=== PATIENT | female | born 1995 | race Hispanic/Latino ===

== ENCOUNTER 2022-06-13 01:05 | Emergency (ER) | payer BC ==
[2022-06-13 01:59] LABS: Urine Blood Trace-intact (Negative); Urine Glucose Negative (Negative); Urine Protein Negative (Negative); Urine Specific Gravity >=1.030 (1.005-1.030); Urine pH 6.5 (5.0-7.0)
[2022-06-13] MEDS ORDERED: FAMOTIDINE 20 MG/2 ML VIAL IV ONE (02:00)
[2022-06-13] MEDS ORDERED: NA CHLORIDE 0.9% 1,000 ML ONE (02:00)
[2022-06-13] MEDS ORDERED: ONDANSETRON 4 MG/2 ML VIAL ONE (02:00)
[2022-06-13] MEDS ORDERED: MORPHINE 4 MG/ML SYR ONE (02:00)
[2022-06-13 02:17] LABS: Absolute Lymphocytes (CBC) 2.2 K/uL (0.7-4.9); Hematocrit 36.5 % (36.0-45.0); Lymphocytes % 35.2 % (15.3-44.8); MCV 83.6 fL (80-100); MPV 6.7 fL (7.6-11.3); RBC Red Blood Cell Count 4.36 M/uL (3.86-4.86)
[2022-06-13 02:18] LABS: Urine Specific Gravity/Preg >1.030 (1.005-1.030)
[2022-06-13 02:36] LABS: Albumin 3.9 g/dL (3.4-5.0); Bilirubin Total 0.4 mg/dL (0.2-1.0); Potassium 3.8 mmol/L (3.5-5.1); Protein, Total 7.8 g/dL (6.4-8.2)
[2022-06-13] MEDS ORDERED: HYDROMORPHONE HCL 0.5 MG/0.5 ML INJ ONE (03:51)
--- NOTE | 2022-06-13 04:30 | EDPHYS ---
Physician Documentation [facility] Name: Rosina Chu Age: 27 yrs Sex: Female : 1995 Arrival Date: 06/13/2022 Time: 01:12 Bed 12 Private MD: ED Physician Wilmer Aceves HPI: 06/13 02:20 This 27 yrs old Female presents to ER via Ambulatory with complaints of abd rn pain. 02:20 The patient presents with abdominal pain in the right upper quadrant. Onset: The rn symptoms/episode began/occurred today. The symptoms radiate to back. Associated signs and symptoms: Pertinent positives: nausea and vomiting, Pertinent negatives: blood in stools, chest pain, fever, shortness of breath. The symptoms are described as sharp, stabbing. Modifying factors: The symptoms are alleviated by nothing, the symptoms are aggravated by food, touching the area. Severity of pain: At its worst the pain was moderate in the emergency department the pain is unchanged. The patient has experienced similar episodes in the past. The patient has been recently seen by a physician:. Pt reports RUQ abd pain that began yesterday, assoc with nausea/vomiting. Has known gallstones and scheduled for cholecystectomy on Jun 25. Has hydrocodone for pain and wasn't helping, so came in tonight. . 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 It has been more than one year since last vaccine. - Social history:: Smoking status: Patient denies any tobacco usage or history of. - Family history:: not pertinent. - Hospitalizations: : No recent hospitalization is reported. ROS: 02:20 Constitutional: Negative for fever, chills, and weight loss, Eyes: Negative for injury, rn pain, redness, and discharge, Neck: Negative for injury, pain, and swelling, Cardiovascular: Negative for chest pain, palpitations, and edema, Respiratory: Negative for shortness of breath, cough, wheezing, and pleuritic chest pain, Abdomen/GI: + RUQ abd pain and nausea/vomiting Back: Negative for injury and pain, MS/Extremity: Negative for injury and deformity, Skin: Negative for injury, rash, and discoloration, Neuro: Negative for headache, weakness, numbness, tingling, and seizure. Exam: 02:20 Constitutional: This is a well developed, well nourished patient who is awake, alert, rn appears slightly uncomfortable Head/Face: Normocephalic, atraumatic. Cardiovascular: Regular rate and rhythm. No pulse deficits. Respiratory: No increased work of breathing, no retractions or nasal flaring. Abdomen/GI: Soft, + RUQ tenderness, no rebound Skin: Warm, dry MS/ Extremity: Pulses equal, no cyanosis. Neuro: Awake and alert, GCS 15 Vital Signs: 01:44 BP 124 / 88; Pulse 81; Resp 18; Temp 98.1; Pulse Ox 100% ; Weight 86.18 kg; Height 5 tw5 ft. 8 in. (172.72 cm); Pain 9/10; 03:54 BP 130 / 82; Pulse 71; Resp 18; Pulse Ox 100% on R/A; Pain 9/10; tw5 04:25 Pain 5/10; tw5 04:40 BP 103 / 52; Pulse 65; Resp 18; Pulse Ox 100% ; Pain 5/10; tw5 01:44 Body Mass Index 28.89 (86.18 kg, 172.72 cm) tw5 MDM: 01:35 Patient medically screened. rn 04:28 Differential diagnosis: cholecystitis, Cholelithiasis, gastritis, gastroesophageal rn reflux disease, non-specific abd pain, pancreatitis, Peptic Ulcer Disease. Data reviewed: vital signs, nurses notes, lab test result(s), radiologic studies, CT scan, and as a result, I will discharge patient. Counseling: I had a detailed discussion with the patient and/or guardian regarding: the historical points, exam findings, and any diagnostic results supporting the discharge/admit diagnosis, lab results, radiology results, the need for outpatient follow up, to return to the emergency department if symptoms worsen or persist or if there are any questions or concerns that arise at home. Response to treatment: the patient's symptoms have markedly improved after treatment, and as a result, I will discharge patient. Special discussion: Based on the patient's Hx, exam, and Dx evaluation, there is no indication for emergent surgery or inpatient Tx. It is understood by the patient/guardian that if the Sx's persist or worsen they need to return immediately for re-evaluation. I discussed with the patient/guardian in detail that at this point there is no indication for admission to the hospital. It is understood, however, that if the symptoms persist or worsen the patient needs to return immediately for re-evaluation. Based on the history and exam findings, there is no indication for further emergent testing or inpatient evaluation. I discussed with the patient/guardian the need to see the general surgeon for further evaluation of the symptoms. ED course: Pt sleeping comfortably, pain free, will dc home with surgery f/u. TOld her to call Dr. De Dios, might move up surgery. Given return precautions. Has norco at home for pain. . 06/13 01:49 Order name: CBC with Diff; Complete Time: 02:53 rn 06/13 01:49 Order name: CMP; Complete Time: 02:53 rn 06/13 01:49 Order name: Lipase; Complete Time: 02:53 rn 06/13 01:49 Order name: CT Abd/Pelvis - IV Contrast Only rn 06/13 02:00 Order name: Urine Dipstick-Ancillary; Complete Time: 02:53 EDMS 06/13 02:01 Order name: Urine --Ancillary (enter results); Complete Time: 02:53 wm 06/13 01:49 Order name: IV Saline Lock; Complete Time: 02:09 rn 06/13 01:49 Order name: Labs collected and sent; Complete Time: 02:09 rn 06/13 01:49 Order name: Urine Dipstick-Ancillary (obtain specimen); Complete Time: 02:16 rn 06/13 01:49 Order name: Urine Test (obtain specimen); Complete Time: 02:16 rn Administered Medications: 02:16 Drug: NS 0.9% 1000 ml Route: IV; Rate: 1 bolus; Site: left antecubital; tw5 04:41 Follow up: Response: No adverse reaction; IV Status: Completed infusion; IV Intake: tw5 1000ml 02:16 Drug: Pepcid (famotidine) 20 mg Route: IVP; Site: left antecubital; tw5 03:49 Follow up: Response: No adverse reaction tw5 02:16 Drug: Zofran (Ondansetron) 4 mg Route: IVP; Site: left antecubital; tw5 03:49 Follow up: Response: No adverse reaction tw5 02:16 Drug: morphine 4 mg Route: IVP; Infused Over: 4 mins; Site: left antecubital; tw5 03:50 Follow up: Response: No adverse reaction; Pain is unchanged, physician notified; RASS: tw5 Alert and Calm (0) 03:54 Drug: Dilaudid (HYDROmorphone) 1 mg Route: IVP; Site: left antecubital; tw5 04:25 Follow up: Pain 5/10 Adult; Response: No adverse reaction; Pain is decreased tw5 Disposition Summary: 06/13/22 04:30 Discharge Ordered Location: Home rn Problem: an ongoing problem rn Symptoms: have improved rn Condition: Stable rn Diagnosis - Other cholelithiasis without obstruction rn Followup: rn - With: Terence De Dios MD - When: As needed - Reason: Recheck today's complaints, Re-evaluation by your physician Discharge Instructions: - Discharge Summary Sheet rn - Cholelithiasis rn Forms: - Medication Reconciliation Form rn - Thank You Letter rn - Antibiotic internal medicine nurse practitioner - Prescription Opioid Use rn Signatures: Dispatcher [employer] Wilmer Gunderson MD MD rn Maggie Bradford tw5
--- NOTE | 2022-06-13 04:30 | ER ---
Nurse's Notes [facility] Name: Rosina Chu Age: 27 yrs Sex: Female : 1995 Arrival Date: 06/13/2022 Time: 01:12 Bed 12 Private MD: Diagnosis: Other cholelithiasis without obstruction Presentation: 06/13 01:44 Chief complaint: Patient states: "I am having a gallbladder attack. I am scheduled to tw5 have my gallbladder removed on June [address] De Dios. I took a norco around 2100, but it isn't helping with my pain at all. ". Coronavirus screen: Vaccine status: Patient reports receiving the 2nd dose of the covid vaccine. Moderna. Ebola Screen: Patient negative for fever greater than or equal to 101.5 degrees Fahrenheit, and additional compatible Ebola Virus Disease symptoms Patient denies exposure to infectious person. Patient denies travel to an Ebola-affected area in the 21 days before illness onset. Initial Sepsis Screen: Does the patient meet any 2 criteria? No. Patient's initial sepsis screen is negative. Does the patient have a suspected source of infection? No. Patient's initial sepsis screen is negative. Risk Assessment: Do you want to hurt yourself or someone else? Patient reports no desire to harm self or others. Onset of symptoms was June 12, 2022 at 21:00. 01:44 Method Of Arrival: Ambulatory tw5 01:44 Acuity: PANCHO 3 tw5 Triage Assessment: 01:46 General: Appears in no apparent distress. uncomfortable, Behavior is calm, cooperative, tw5 appropriate for age. Pain: Pain currently is 9 out of 10 on a pain scale. Musculoskeletal: Range of motion: intact in all extremities. 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 It has been more than one year since last vaccine. - Social history:: Smoking status: Patient denies any tobacco usage or history of. - Family history:: not pertinent. - Hospitalizations: : No recent hospitalization is reported. Screenin:15 Abuse screen: Denies threats or abuse. Denies injuries from another. Nutritional tw5 screening: No deficits noted. Tuberculosis screening: No symptoms or risk factors identified. Fall Risk None identified. Assessment: 02:15 General: Appears in no apparent distress. uncomfortable, Behavior is calm, cooperative, tw5 appropriate for age. Neuro: Level of Consciousness is awake, alert, obeys commands, Oriented to person, place, time, situation. Respiratory: No deficits noted. GI:. : No deficits noted. Derm: No deficits noted. 03:54 Reassessment: No changes from previously documented assessment. Patient and/or family tw5 updated on plan of care and expected duration. Pain level reassessed. Patient is alert, oriented x 3, equal unlabored respirations, skin warm/dry/pink. 04:25 Reassessment: Patient states feeling better. Patient states symptoms have improved. tw5 Pain: Pain currently is 5 out of 10 on a pain scale. Vital Signs: 01:44 BP 124 / 88; Pulse 81; Resp 18; Temp 98.1; Pulse Ox 100% ; Weight 86.18 kg; Height 5 tw5 ft. 8 in. (172.72 cm); Pain 9/10; 03:54 BP 130 / 82; Pulse 71; Resp 18; Pulse Ox 100% on R/A; Pain 9/10; tw5 04:25 Pain 5/10; tw5 04:40 BP 103 / 52; Pulse 65; Resp 18; Pulse Ox 100% ; Pain 5/10; tw5 01:44 Body Mass Index 28.89 (86.18 kg, 172.72 cm) tw5 ED Course: 01:12 Patient arrived in ED. ja2 01:35 Wilmer Aceves MD is Attending Physician. rn 01:44 Maggie Bradford is Primary Nurse. tw5 01:46 Triage completed. tw5 01:46 Arm band placed on. tw5 01:59 Initial lab(s) drawn, by co, sent to lab. Inserted saline lock: 22 gauge in right mb4 antecubital area, using aseptic technique. Blood collected. 02:09 CBC with Diff Sent. mb4 02:09 CMP Sent. mb4 02:09 Lipase Sent. mb4 02:15 Patient has correct armband on for positive identification. Bed in low position. Call tw5 light in reach. Side rails up X 1. Adult w/ patient. Pulse ox on. NIBP on. Door closed. Noise minimized. Moved to private room. Warm blanket given. Verbal reassurance given. 02:15 IV discontinued. mb4 02:15 Inserted saline lock: 20 gauge in left antecubital area, using aseptic technique. IV tw5 discontinued, intact, bleeding controlled, No redness/swelling at site. Pressure dressing applied. 02:16 Urine --Ancillary (enter results) Sent. tw5 03:07 CT Abd/Pelvis - IV Contrast Only In Process Unspecified. EDMS 03:54 No provider procedures requiring assistance completed. tw5 04:30 Terence De Dios MD is Referral Physician. rn 04:40 IV discontinued, intact, bleeding controlled, No redness/swelling at site. Pressure tw5 dressing applied. Administered Medications: 02:16 Drug: NS 0.9% 1000 ml Route: IV; Rate: 1 bolus; Site: left antecubital; tw5 04:41 Follow up: Response: No adverse reaction; IV Status: Completed infusion; IV Intake: tw5 1000ml 02:16 Drug: Pepcid (famotidine) 20 mg Route: IVP; Site: left antecubital; tw5 03:49 Follow up: Response: No adverse reaction tw5 02:16 Drug: Zofran (Ondansetron) 4 mg Route: IVP; Site: left antecubital; tw5 03:49 Follow up: Response: No adverse reaction tw5 02:16 Drug: morphine 4 mg Route: IVP; Infused Over: 4 mins; Site: left antecubital; tw5 03:50 Follow up: Response: No adverse reaction; Pain is unchanged, physician notified; RASS: tw5 Alert and Calm (0) 03:54 Drug: Dilaudid (HYDROmorphone) 1 mg Route: IVP; Site: left antecubital; tw5 04:25 Follow up: Pain 5/10 Adult; Response: No adverse reaction; Pain is decreased tw5 Medication: 02:15 VIS not applicable for this client. tw5 Intake: 04:41 IV: 1000ml; Total: 1000ml. tw5 Outcome: 04:30 Discharge ordered by . rn 04:40 Discharged to home ambulatory, with family. tw5 04:40 Condition: good 04:40 Discharge instructions given to patient, Instructed on discharge instructions, follow up and referral plans. Demonstrated understanding of instructions, follow-up care. 04:41 Patient left the ED. tw5 Signatures: Dispatcher [employer] EDMS Aceves, Wilmer, MD MD rn Buenrostro, Sarah mb4 Tabitha Dawson Tiffany tw5
[2022-06-13 04:46] VITALS: TEMP 98.1; O2SAT 100
[2022-06-13 04:49] VITALS: BP 103/52
--- NOTE | 2022-06-13 17:25 | RAD REPORT ---
EXAM DESCRIPTION: CT - Abdomen Pelvis W Contrast - 06/13/2022 3:44 am CLINICAL HISTORY: 27 years Female RUQ abd pain, hx of gallstones TECHNIQUE: Axial CT imaging of the abdomen and pelvis was performed following the administration of intravenous contrast.. Oral contrast was not administered. Sagittal and coronal reconstructed image s were then performed. The CT study is performed according to ALARA (as low as reasonably achievabl e) or ALARA/IMAGE GENTLY, with automatic adjustment of mA and/or kV according to patient size. Performed on: 06/13/2022 at 3:05 AM. COMPARISON: No prior studies were available for comparison. FINDINGS: Lung bases: The lung bases are clear. There is minimal right basilar atelectasis and/or fi brosis. There is mild elevation of the right hemidiaphragm. Liver: The liver measures approximately 22 cm in craniocaudal dimension. No focal hepatic abnormaliti es are identified. Liver attenuation is within normal limits. The hepatic and portal veins are patent . Spleen: The spleen is normal in size, configuration and attenuation. Gallbladder and bile duct: The gallbladder is well-distended. There is slightly heterogeneous atten uation of the gallbladder lumen which could be related to gallstones or sludge. There is no biliary d uctal dilatation. Pancreas: The pancreas is grossly normal in size and configuration. Adrenal Glands: The adrenal glands are normal in size and configuration. Kidneys: The kidneys are normal in size and configuration. There is no evidence of hydronephrosis. Th ere is no evidence of nephrolithiasis. No definite solid or cystic renal mass lesions are identified. Stomach: The stomach is grossly normal. There is no definite hiatal hernia. Bowel: The bowel gas pattern is non specific and non obstructive. Appendix: The appendix is not clearly delineated on this examination. There is no CT evidence to sugg est acute appendicitis. Free air: There is no evidence of free air. Free fluid: There is no evidence of free fluid. Vasculature: The aorta is normal in caliber and contour. The inferior vena cava is grossly unremarkab le. Lymphadenopathy: No pathologic lymphadenopathy is identified. Bladder: The bladder is well distended and smooth in contour. Reproductive: The uterus is retroflexed. Bones: No acute osseous abnormalities are identified. Soft tissues: No acute soft tissue abnormalities are identified. There is a small fat-containing vent ral umbilical hernia. IMPRESSION: 1. No evidence of acute intra-abdominal or intrapelvic pathology. 2. There is slightly heterogeneous attenuation of the gallbladder lumen which could be related to g allstones or sludge. 3. Hepatomegaly. 4. Retroflexed uterus. 5. Small fat-containing ventral umbilical hernia. 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 The interpreting radiologist is fully responsible for the content of the report.
== END 2022-06-13 04:41 | disposition home or self-care (01) ==
LOC: ER 01:05
DX: K80.80 Other cholelithiasis without obstruction (principal)
CPT/HCPCS: 96361; 85025; 36415; 81025; 81003; 83690; 80053; 74177; 96375; 96374; 99284; Q9967; J1170; J7030; J2405

== ENCOUNTER 2022-06-22 07:41 | Emergency (ER) | payer BC ==
--- OUTSIDE RECORDS SUMMARY | 2022-06-22 07:45 | XMS REPORT | Continuity of Care Document ---
:1995 Author Organization [facility] t Address [address] [place] [address] [address]. [address] [place] [address] Care Team Providers Name Role Phone PCP, PATIENT DOES NOT HAVE A Primary Care Physician Nirmal Pena MD Attending Clinician Sergio Lorenz MD Attending Clinician SERGIO LORENZ Attending Clinician Unavailable NIRMAL MATOS Admitting Clinician Unavailable Payers Payer Name Policy Type Policy Number Effective Date Expiration Date S ource Problems This patient has no known problems. Allergies, Adverse Reactions, Alerts Allergy Allergy Status Severity Reaction(s) Onset Inactive Treating Comm ents Source Name Type Date Date Clinician NO KNOWN Drug Active Univers ALLERGIE Class ity of [facility] Social History Social Habit Start Date Stop Date Quantity Comments Source Exposure to 2022-01-11 2022-01-21 Not sure [facility] SARS-CoV-2 (event) 00:00:00 21:49:00 Medica l Branch Sex Assigned At [birth year] [facility] 00:00:00 00:00:00 [facility] Smoking Status Start Date Stop Date Source Unknown if ever smoked [facility] Medications Ordered Filled Start Stop Current Ordering Indication Dosage Frequency Signature Comments Components Source Medication Medication Date Date Medication? Clinician (SIG) Name Name ondansetron No 4mg 4 mg, Slow Univers (ZOFRAN 01-22 07- IV Push, ity of ()) 07:45: 07:03 ONCE, 1 [place] injection 4 00 :00 dose, On Medi sandy mg 01/22/22 Branch at 0245, GANESH FENTanyl PF 2021- No 100ug 100 mcg, Univers (SUBLIMAZE 01-22 Slow IV ity o f (PF)) 07:45: 07:02 Push, [place] injection 00 :00 ONCE, 1 Medical 100 mcg dose, On Branch Thu01/22/22 at 0245, STAT maalox:diph 2021- No 15mL 15 mL, Uni vers enhydrAMINE 01-22 Oral, ity of :lidocaine 05:15: 05:15 ONCE, 1 [place] as 2 % viscous 00 :00 dose, On Medi sandy 1:1:1 Thu01/22/22 Branch (FIRST-MOUT at 0015, HWASH BLM) Routine oral suspension 15 mL ondansetron Yes [id number] 4mg Take 1 Univers 4 mg 01-22 tablet by ity of disintegrat 00:00: mouth [place] ing tablet 00 every 4 Medica l (four) Branch hours as needed for Nausea and Vomiting (N/V). HYDROcodone 2021- No 4647 1{tbl} Take 1 U nivers -acetaminop 01-22 tablet by it y of hen (NORCO) 00:00: 04:59 [place] 7.5-325 mg 00 :00 every 8 Medica l per tablet (eight) Branch hours as needed for Pain for up to 7 days. Indication s: acute pain Vital Signs Vital Name Observation Time Observation Value Comments Source Systolic blood 2022-01-22 07:00:00 116 mm[Hg] [facility] [place] [facility] 2022-01-22 07:00:00 77 mm[Hg] [facility] Heart rate 2022-01-22 07:00:00 85 /min [facility] Respiratory rate 2022-01-22 07:00:00 16 /min [facility] Oxygen saturation in 2022-01-22 07:00:00 98 /min [facility] Arterial blood by [facility] Pulse oximetry Branch Body temperature 2022-01-22 02:50:00 36.94 Patricia [facility] Body height 2022-01-22 02:50:00 172.7 cm [facility] Body weight 2022-01-22 02:50:00 83.915 kg [facility] BMI 2022-01-22 02:50:00 28.13 kg/m2 [facility] Procedures Procedure Date / Time Performed Performing Clinician Mehdi HOSKINS GALL BLADDER 2022-01-22 05:34:55 Nirmal Matos [facility] POCT TEST 2022-01-22 04:21:00 Nirmal Matos [facility] LIPASE 2022-01-22 03:28:00 Nirmal Matos [facility] COMP. METABOLIC PANEL 2022-01-22 03:28:00 Nirmal Matos [facility] ([id number] CBC WITH DIFF 2022-01-22 03:28:00 Nirmal Matos [facility] URINALYSIS 2022-01-22 03:28:00 Nirmal Matos [facility] Encounters Start End Encounter Admission Attending Care Care Encounter Source Date/Time Date/Time Type Type Clinicians Facility Department ID 2022-01-21 2022-01-22 Emergency Nirmal Matos [facility] [id number] Univers 21:55:00 02:47:00 Sergio Lorenz [id number] [facility] [id number] [facility] [id number] [facility] 084 Branch 2022-01-21 2022-01-22 Emergency X ALCIDES LORENZ ERT [id number] Univers 21:55:00 02:47:00 SERGIO dalton [facility] Results Test Description Test Time Test Comments Results Result Comments Source CBC with Differential 2022-01-22 05:23:35 Test Item Value Reference Range Interpretation Comme nts WBC (test code = 6690-2) See_Comment [A utomated message] The system which ge nerated this result transmit vitaliy reference range: 4.30 - 1 1.10 10*3/?L. The reference r meenakshi was not used to interpr et this result as normal/abnor mal. RBC (test code = 789-8) See_Comment [Au tomated message] The system which ge nerated this result transmit vitaliy reference range: 3.93 - 5 .25 10*6/?L. The reference r meenakshi was not used to interpr et this result as normal/abnor mal. HGB (test code = 718-7) 11.9 g/dL 11.6-15.0 HCT (test code = 4544-3) 37.8 % 35.7-45.2 MCV (test code = 787-2) 84.0 fL 80.6-95.5 MCH (test code = 785-6) 26.4 pg 25.9-32.8 MCHC (test code = 786-4) 31.5 g/dL 31.6-35.1 L RDW-SD (test code = 32687-7) 42.2 fL 39.0-49.9 RDW-CV (test code = 788-0) 13.7 % 12.0-15.5 PLT (test code = 777-3) See_Comment [Au tomated message] The system which [employer] nerated this result transmit vitaliy reference range: 166 - 35 8 10*3/?L. The reference range was not used to interpret th is result as normal/abnormal . MPV (test code = 96208-6) 9.0 fL 9.5-12.9 L NRBC/100 WBC (test code = See_Comment [ Automated message] The [id number]) system which [employer] nerated this result transmit vitaliy reference range: 0.0 - 10 .0 /100 WBCs. The reference r meenakshi was not used to interpr et this result as normal/abnor mal. NRBC x10^3 (test code = <0.01 See_Comment [Au tomated message] The 0407111346) system which [employer] nerated this result transmit vitaliy reference range: 10*3/?L. The reference range was not u sed to interpret this result as normal/abnormal . GRAN MAT (NEUT) % (test code 28.4 % = 770-8) IMM GRAN % (test code = 0.20 % 7521074848) LYMPH % (test code = 736-9) 56.8 % MONO % (test code = 5905-5) 10.8 % EOS % (test code = 713-8) 2.9 % BASO % (test code = 706-2) 0.9 % GRAN MAT x10^3(ANC) (test 1.26 10*3/uL 1.88-7.09 L code = 4605457539) IMM GRAN x10^3 (test code = <0.03 0.00-0.06 6081601428) LYMPH x10^3 (test code = 2.52 10*3/uL 1.32-3.29 731-0) MONO x10^3 (test code = 0.48 10*3/uL 0.33-0.92 742-7) EOS x10^3 (test code = 0.13 10*3/uL 0.03-0.39 711-2) BASO x10^3 (test code = 0.04 10*3/uL 0.01-0.07 704-7) REACT LYMPHS (test code = Rare 5320262536) Lab Interpretation (test Abnormal code = 90379-2) [facility] [id number] 05:09:04 Test Item Value Reference Range Interpretation Comments NA (test code = 140 mmol/L 135-145 2853302413) K (test code = 4.1 mmol/L 3.5-5.0 1886060960) CL (test code = 102 mmol/L 98-108 3081929154) CO2 TOTAL (test code 27 mmol/L 23-31 = 6484254969) AGAP (test code = 2-16 8668856487) BUN (test code = 13 mg/dL 7-23 0054640711) GLUCOSE (test code = 102 mg/dL 70-110 1258042311) CREATININE (test code 0.71 mg/dL 0.50-1.04 = 8136637884) TOTAL BILI (test code 0.2 mg/dL 0.1-1.1 = 6556206215) CALCIUM (test code = 9.0 mg/dL 8.6-10.6 0420742905) T PROTEIN (test code 7.5 g/dL 6.3-8.2 = 1964849215) ALBUMIN (test code = 4.4 g/dL 3.5-5.0 6303335551) ALK PHOS (test code = 57 U/L 34-122 7998262559) ALTv (test code = 23 U/L 5-35 1742-6) AST(SGOT) (test code 25 U/L 13-40 = 3180477001) eGFR (test code = mL/min/1.73m2 0158452012) OTIS (test code = OTIS) Association of Glomerular Filtration Rate (GFR) and Staging of Kidney Disease* + + +- +| GFR (mL/min/1.73 m2) ?| With Kidney Damage ?| ?Without Kidney Damage+ ------+ ----+ ------+| ?>90 ?| ?Stage one ?| ? Normal ?+ -+ + -+| ?60-89 ?| ?Stage two ?| ? Decreased GFR ? + + +- +| ?30-59 ?| ?Stage three ?| ? Stage three ? + + +- +| ?15-29 ?| ?Stage four ? | ? Stage four ?+ -+ + -+| ?<15 (or dialysis) ? ?| ?Stage five ? | ? Stage five ?+ -+ + -+ *Each stage assumes the associated GFR level has been in effect for at least three months. ?Stages 1 to 5, with or without kidney disease, indicate chronic kidney disease. Notes: Determination of stages one and two (with eGFR >59mL/min/1.73 m2) requires estimation of kidney damage for at least three months as defined by structural or functional abnormalities of the kidney, manifested by either:Pathological abnormalities or Markers of kidney damage (including abnormalities in the composition of the blood or urine or abnormalities in imaging tests). [facility], [id number] 05:08:59 Test Item Value Reference Range Interpretation Comments LIPASE (test code = 9653497765) 173 U/L 0-220 Lab Interpretation (test code = Normal 79302-2) [facility] [id number] 04:21:00 Test Item Value Reference Range Interpretation Comments POCT PREG (test code = 1605) negative Lab Interpretation (test code = Normal 12792-2) [facility]"
[2022-06-22 08:03] LABS: Urine Blood 1+ (Negative); Urine Glucose Negative (Negative); Urine Protein Trace (Negative); Urine Specific Gravity 1.025 (1.005-1.030)
[2022-06-22] MEDS ORDERED: MORPHINE 4 MG/ML SYR ONE (08:16)
[2022-06-22] MEDS ORDERED: NA CHLORIDE 0.9% 1,000 ML ONE (08:16)
[2022-06-22] MEDS ORDERED: FAMOTIDINE 20 MG/2 ML VIAL IV ONE (08:16)
[2022-06-22] MEDS ORDERED: ONDANSETRON 4 MG/2 ML VIAL ONE ×2 (08:16→10:57)
[2022-06-22 08:21] LABS: Absolute Lymphocytes (CBC) 1.3 K/uL (0.7-4.9); Hematocrit 37.4 % (36.0-45.0); Lymphocytes % 20.9 % (15.3-44.8); MCV 83.2 fL (80-100); MPV 6.3 fL (7.6-11.3)
[2022-06-22 08:23] LABS: Urine Bacteria <20 /HPF (<20); Urine Mucus Slight /HPF (None Seen)
[2022-06-22 08:42] LABS: Bilirubin Total 0.4 mg/dL (0.2-1.0); Potassium 3.6 mmol/L (3.5-5.1); Protein, Total 8.1 g/dL (6.4-8.2)
[2022-06-22 08:47] LABS: Urine Specific Gravity/Preg 1.025 (1.005-1.030)
[2022-06-22] MEDS ORDERED: HYDROMORPHONE HCL 1 MG/ML INJ ONE ×2 (08:56→10:57)
--- NOTE | 2022-06-22 09:29 | EDPHYS ---
Physician Documentation [facility] Name: Rosina Chu Age: 27 yrs Sex: Female : 1995 Arrival Date: 06/22/2022 Time: 07:43 Bed 5 Private MD: ED Physician Dar Abbott HPI: 06/22 09:22 This 27 yrs old Female presents to ER via Ambulatory with complaints of newton Vomiting, Abdominal Pain, Back Pain. 09:22 The patient presents to the emergency department with nausea, vomiting, abdominal pain, newton of the right upper quadrant. 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 - Social history:: Smoking status: Patient denies any tobacco usage or history of. ROS: 09:24 Constitutional: Negative for fever, chills, and weight loss, Eyes: Negative for injury, newton pain, redness, and discharge, ENT: Negative for injury, pain, and discharge, Neck: Negative for injury, pain, and swelling, Cardiovascular: Negative for chest pain, palpitations, and edema, Respiratory: Negative for shortness of breath, cough, wheezing, and pleuritic chest pain, Back: Negative for injury and pain, : Negative for injury, bleeding, discharge, and swelling, MS/Extremity: Negative for injury and deformity, Skin: Negative for injury, rash, and discoloration, Neuro: Negative for headache, weakness, numbness, tingling, and seizure, Psych: Negative for depression, anxiety, suicide ideation, homicidal ideation, and hallucinations, Allergy/Immunology: Negative for hives, rash, and allergies, Endocrine: Negative for neck swelling, polydipsia, polyuria, polyphagia, and marked weight changes, Hematologic/Lymphatic: Negative for swollen nodes, abnormal bleeding, and unusual bruising. 09:24 Abdomen/GI: Positive for abdominal pain, of the right upper quadrant. Exam: 09:24 Constitutional: This is a well developed, well nourished patient who is awake, alert, newton and in no acute distress. Head/Face: Normocephalic, atraumatic. Eyes: Pupils equal round and reactive to light, extra-ocular motions intact. Lids and lashes normal. Conjunctiva and sclera are non-icteric and not injected. Cornea within normal limits. Periorbital areas with no swelling, redness, or edema. ENT: Nares patent. No nasal discharge, no septal abnormalities noted. Tympanic membranes are normal and external auditory canals are clear. Oropharynx with no redness, swelling, or masses, exudates, or evidence of obstruction, uvula midline. Mucous membranes moist. Neck: Trachea midline, no thyromegaly or masses palpated, and no cervical lymphadenopathy. Supple, full range of motion without nuchal rigidity, or vertebral point tenderness. No Meningismus. Chest/axilla: Normal chest wall appearance and motion. Nontender with no deformity. No lesions are appreciated. Cardiovascular: Regular rate and rhythm with a normal S1 and S2. No gallops, murmurs, or rubs. Normal PMI, no JVD. No pulse deficits. Respiratory: Lungs have equal breath sounds bilaterally, clear to auscultation and percussion. No rales, rhonchi or wheezes noted. No increased work of breathing, no retractions or nasal flaring. Back: No spinal tenderness. No costovertebral tenderness. Full range of motion. Female : Normal external genitalia. Skin: Warm, dry with normal turgor. Normal color with no rashes, no lesions, and no evidence of cellulitis. MS/ Extremity: Pulses equal, no cyanosis. Neurovascular intact. Full, normal range of motion. Neuro: Awake and alert, GCS 15, oriented to person, place, time, and situation. Cranial nerves II-XII grossly intact. Motor strength 5/5 in all extremities. Sensory grossly intact. Cerebellar exam normal. Normal gait. Psych: Awake, alert, with orientation to person, place and time. Behavior, mood, and affect are within normal limits. 09:24 Abdomen/GI: Inspection: abdomen appears normal, Bowel sounds: normal, Palpation: mild abdominal tenderness, in the right upper quadrant, Liver: no appreciated palpable abnormalities, Hernia: not appreciated. Vital Signs: 07:59 BP 131 / 91; Pulse 75; Resp 18; Temp 98.0(O); Pulse Ox 100% on R/A; Weight 87.09 kg; ph Height 5 ft. 8 in. (172.72 cm); Pain 9/10; 09:00 BP 127 / 86; Pulse 72; Resp 18; Pulse Ox 96% on R/A; ph 10:00 BP 132 / 78; Pulse 72; Resp 18; Pulse Ox 99% on R/A; ph 11:00 BP 120 / 82; Pulse 71; Resp 18; Temp 98.0; Pulse Ox 99% on R/A; Pain 4/10; ph 07:59 Body Mass Index 29.19 (87.09 kg, 172.72 cm) ph MDM: 07:56 Patient medically screened. newton 09:27 Differential diagnosis: Nonspecific abd pain, gastritis, cholecystitis, pancreatitis, newton appendicitis, diverticulitis, viral gastroenteritis, gastroenteritis. Data reviewed: vital signs, nurses notes, lab test result(s), radiologic studies, ultrasound. Data interpreted: compliance monitor: not applicable for this patient encounter. rate is 75 beats/min, rhythm is regular, Pulse oximetry: on room air is 100 %. Test interpretation: by ED physician or midlevel provider:. Counseling: I had a detailed discussion with the patient and/or guardian regarding: the historical points, exam findings, and any diagnostic results supporting the discharge/admit diagnosis, lab results, radiology results, the need for outpatient follow up, for definitive care, a general surgeon. 06/22 08:03 Order name: Urine Dipstick-Ancillary; Complete Time: 09:06 [facility] 06/22 08:09 Order name: CBC with Diff; Complete Time: 09:06 [facility] 06/22 08:09 Order name: CMP; Complete Time: 09:06 [facility] 06/22 08:09 Order name: Lipase; Complete Time: 09:06 [facility] 06/22 08:09 Order name: Urine Microscopic Only; Complete Time: 09:06 [facility] 06/22 08:17 Order name: Urine --Ancillary (enter results); Complete Time: 09:06 06/22 08:09 Order name: Abdomen Limited US [facility] 06/22 08:26 Order name: Urine Culture [facility] 06/22 08:09 Order name: IV Saline Lock; Complete Time: 08:11 [place] 06/22 08:09 Order name: Labs collected and sent; Complete Time: 08:11 [facility] 06/22 08:09 Order name: Urine Dipstick-Ancillary (obtain specimen); Complete Time: 08:11 [place] 06/22 08:09 Order name: Urine Test (obtain specimen); Complete Time: 08:11 [place] Administered Medications: 08:18 Drug: Pepcid (famotidine) 20 mg Route: IVP; Site: right antecubital; ph 08:30 Follow up: Response: No adverse reaction ph 08:20 Drug: NS 0.9% 1000 ml Route: IV; Rate: 1 bolus; Site: right antecubital; ph 09:30 Follow up: Response: No adverse reaction; IV Status: Completed infusion ph 08:20 Drug: Zofran (Ondansetron) 4 mg Route: IVP; Site: right antecubital; ph 08:30 Follow up: Response: No adverse reaction ph 08:22 Drug: morphine 4 mg Route: IVP; Infused Over: 4 mins; Site: right antecubital; ph 08:45 Follow up: Response: No adverse reaction ph 09:00 Drug: Dilaudid (HYDROmorphone) 1 mg Route: IVP; Site: right antecubital; ph 09:30 Follow up: Response: No adverse reaction ph 10:07 Drug: Zosyn (piperacillin-tazobactam) 3.375 grams Route: IVPB; Infused Over: 60 mins; ph Site: right antecubital; 11:10 Follow up: Response: No adverse reaction; IV Status: Completed infusion ph 11:00 Drug: Zofran (Ondansetron) 4 mg Route: IVP; Site: right antecubital; ph 11:30 Follow up: Response: No adverse reaction ph 11:03 Drug: Dilaudid (HYDROmorphone) 1 mg Route: IVP; Site: right antecubital; ph 11:30 Follow up: Response: No adverse reaction; Pain is decreased ph 11:11 Drug: Augmentin (Amoxicillin-Clavulanate) 875 mg Route: PO; ph 11:30 Follow up: Response: No adverse reaction ph Disposition Summary: 06/22/22 09:29 Discharge Ordered Location: Home new[place] Problem: new newton Symptoms: have improved newton Condition: Stable newton Diagnosis - UTI/ Urinary tract infection, site not specified newton - Other cholelithiasis without obstruction newton Followup: newton - With: Terence De Dios MD - When: Tomorrow - Reason: Recheck today's complaints, Continuance of care, Re-evaluation by your physician Discharge Instructions: - Discharge Summary Sheet newton - Dysuria newton - Urinary Tract Infection, Adult newton - Cholelithiasis, Ihcl-bz-Tell newton - Urinary Tract Infection, Adult, [id number] newton Forms: - Medication Reconciliation Form new[place] - Thank You Letter newton - Antibiotic Education newton - Prescription Opioid Use newton Prescriptions: - Augmentin 875-125 mg Oral Tablet - take 1 tablet by ORAL route every 12 hours for 10 days; 20 tablet; Refills: 0, newton Product Selection Permitted Signatures: Dispatcher [employer] Dar Pierre MD MD cha Hall, Patricia, RN RN ph
--- NOTE | 2022-06-22 09:29 | ER ---
Nurse's Notes [facility] Name: Rosina Chu Age: 27 yrs Sex: Female : 1995 Arrival Date: 06/22/2022 Time: 07:43 Bed 5 Private MD: Diagnosis: UTI/ Urinary tract infection, site not specified;Other cholelithiasis without obstruction Presentation: 06/22 07:59 Chief complaint: Patient states: Gallbladder pain that woke her from sleep at 0400 this morning, also reports N/V, has sx scheduled w/ Dr De Dios tomorrow. Coronavirus screen: Vaccine status: Patient reports receiving the 2nd dose of the covid vaccine. Ebola Screen: No symptoms or risks identified at this time. Initial Sepsis Screen: Does the patient meet any 2 criteria? No. Patient's initial sepsis screen is negative. Does the patient have a suspected source of infection? Yes: Acute abdominal pain. Risk Assessment: Do you want to hurt yourself or someone else? Patient reports no desire to harm self or others. Onset of symptoms was June 22, 2022. 07:59 Method Of Arrival: Ambulatory 07:59 Acuity: PANCHO 3 Triage Assessment: 08:02 General: Appears in no apparent distress. comfortable, well groomed, Behavior is calm, ph cooperative, appropriate for age. Pain: Complains of pain in epigastric area and right upper quadrant. Neuro: Level of Consciousness is awake, alert, obeys commands, Oriented to person, place, time, situation. Cardiovascular: Capillary refill < 3 seconds in bilateral fingers. Respiratory: Airway is patent Respiratory effort is even, unlabored. GI: Abdomen is non-distended, Reports upper abdominal pain, nausea, vomiting. Derm: Skin is healthy with good turgor, Skin is pink, warm \T\ dry. Musculoskeletal: Circulation, motion, and sensation intact. Range of motion: intact in all extremities. 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 - Social history:: Smoking status: Patient denies any tobacco usage or history of. Screenin:03 Abuse screen: Denies threats or abuse. Denies injuries from another. Nutritional ph screening: No deficits noted. Tuberculosis screening: No symptoms or risk factors identified. Fall Risk None identified. Assessment: 10:11 Reassessment: Patient appears in no apparent distress at this time. Patient and/or ph family updated on plan of care and expected duration. Pain level reassessed. Patient is alert, oriented x 3, equal unlabored respirations, skin warm/dry/pink. D/C pending completion of IV fluids. Vital Signs: 07:59 BP 131 / 91; Pulse 75; Resp 18; Temp 98.0(O); Pulse Ox 100% on R/A; Weight 87.09 kg; ph Height 5 ft. 8 in. (172.72 cm); Pain 9/10; 09:00 BP 127 / 86; Pulse 72; Resp 18; Pulse Ox 96% on R/A; ph 10:00 BP 132 / 78; Pulse 72; Resp 18; Pulse Ox 99% on R/A; ph 11:00 BP 120 / 82; Pulse 71; Resp 18; Temp 98.0; Pulse Ox 99% on R/A; Pain 4/10; ph 07:59 Body Mass Index 29.19 (87.09 kg, 172.72 cm) ph ED Course: 07:43 Patient arrived in ED. rg4 07:53 Kim Schreiber, RN is Primary Nurse. ph 07:56 Dar Abbott MD is Attending Physician. newton 08:02 Triage completed. ph 08:02 Arm band placed on Patient placed in an exam room, on a stretcher. ph 08:03 Patient has correct armband on for positive identification. Placed in gown. Bed in low ph position. Call light in reach. Pulse ox on. NIBP on. Door closed. Noise minimized. Warm blanket given. 08:05 Urine collected: clean catch specimen, clear, hCG results neg. rs5 08:15 CBC with Diff Sent. mm9 08:15 CMP Sent. mm9 08:15 Lipase Sent. mm9 08:15 Urine Microscopic Only Sent. mm9 08:15 Initial lab(s) drawn, by me, sent to lab. Inserted saline lock: 20 gauge in right mm9 antecubital area, using aseptic technique. Blood collected. 08:56 Abdomen Limited US In Process Unspecified. EDMS 09:28 Terence De Dios MD is Referral Physician. newton 11:10 No provider procedures requiring assistance completed. IV discontinued, intact, ph bleeding controlled, No redness/swelling at site. Pressure dressing applied. Administered Medications: 08:18 Drug: Pepcid (famotidine) 20 mg Route: IVP; Site: right antecubital; ph 08:30 Follow up: Response: No adverse reaction ph 08:20 Drug: NS 0.9% 1000 ml Route: IV; Rate: 1 bolus; Site: right antecubital; ph 09:30 Follow up: Response: No adverse reaction; IV Status: Completed infusion ph 08:20 Drug: Zofran (Ondansetron) 4 mg Route: IVP; Site: right antecubital; ph 08:30 Follow up: Response: No adverse reaction ph 08:22 Drug: morphine 4 mg Route: IVP; Infused Over: 4 mins; Site: right antecubital; ph 08:45 Follow up: Response: No adverse reaction ph 09:00 Drug: Dilaudid (HYDROmorphone) 1 mg Route: IVP; Site: right antecubital; ph 09:30 Follow up: Response: No adverse reaction ph 10:07 Drug: Zosyn (piperacillin-tazobactam) 3.375 grams Route: IVPB; Infused Over: 60 mins; ph Site: right antecubital; 11:10 Follow up: Response: No adverse reaction; IV Status: Completed infusion ph 11:00 Drug: Zofran (Ondansetron) 4 mg Route: IVP; Site: right antecubital; ph 11:30 Follow up: Response: No adverse reaction ph 11:03 Drug: Dilaudid (HYDROmorphone) 1 mg Route: IVP; Site: right antecubital; ph 11:30 Follow up: Response: No adverse reaction; Pain is decreased ph 11:11 Drug: Augmentin (Amoxicillin-Clavulanate) 875 mg Route: PO; ph 11:30 Follow up: Response: No adverse reaction ph Medication: 08:03 VIS not applicable for this client. ph Outcome: 09:29 Discharge ordered by . newton 11:12 Patient left the ED. ph 11:12 Discharged to home ambulatory, with significant other. ph 11:12 Condition: good 11:12 Discharge instructions given to patient, Instructed on discharge instructions, follow up and referral plans. medication usage, Demonstrated understanding of instructions, follow-up care, medications, Prescriptions given X 1. Signatures: Dispatcher [employer] Dar Pierre MD MD cha Hall, Patricia, RN RN Bruce, Trinidad rg4 Gabrielle De Dios mm9 Cuate Clarke rs5 Corrections: (The following items were deleted from the chart) 08:22 08:00 Pepcid (famotidine) 20 mg IVP in right antecubital ph ph
--- NOTE | 2022-06-22 09:40 | RAD REPORT ---
EXAM DESCRIPTION: US - Abdomen Exam Limited - 06/22/2022 8:54 am CLINICAL HISTORY: ABD PAIN COMPARISON: <Comparisons> FINDINGS: Gallbladder size is normal. Multiple mobile gallstones are seen as has been previously det melissa. No gallstones seen to be fixed near the neck of the gallbladder. No wall thickening or pericho lecystic fluid. Common bile duct is normal with no common duct stone identified. Partially imaged liver shows no suspicious finding. IMPRESSION: Cholelithiasis without cholecystitis findings.
[2022-06-22] MEDS ORDERED: NA CHLORIDE 0.9% 100 ML IV ONE (09:56)
[2022-06-22] MEDS ORDERED: PIPERACIL/TAZO 3.375 GM VIAL IV ONE (09:56)
[2022-06-22] MEDS ORDERED: AMOX/K CLAV 875 MG TAB ONE (09:56)
[2022-06-22 11:15] VITALS: BP 131/91; TEMP 98; O2SAT 100
== END 2022-06-22 11:12 | disposition home or self-care (01) ==
LOC: ER 07:41
DX: N39.0 Urinary tract infection, site not specified (principal); K80.80 Other cholelithiasis without obstruction
CPT/HCPCS: 96365; 96361; 87088; 85025; 87086; 36415; 81025; 83690; 80053; 76705; 96375; 99284; J2543; J1170 ×2; J7030; J2405 ×2; 81003; 81015

== ENCOUNTER 2022-06-23 08:19 | Day surgery (SDC) | payer BC ==
[2022-06-17 08:47] LABS: Absolute Lymphocytes (CBC) 1.7 K/uL (0.7-4.9); Hematocrit 36.7 % (36.0-45.0); Lymphocytes % 35.5 % (15.3-44.8); MCV 84.2 fL (80-100); MPV 6.4 fL (7.6-11.3); RBC Red Blood Cell Count 4.37 M/uL (3.86-4.86)
[2022-06-17 08:58] LABS: Albumin 3.7 g/dL (3.4-5.0); Bilirubin Direct 0.2 mg/dL (0-0.2); Bilirubin Total 0.4 mg/dL (0.2-1.0); Potassium 4.1 mmol/L (3.5-5.1); Protein, Total 7.3 g/dL (6.4-8.2)
[2022-06-23] MEDS ORDERED: CEFOXITIN SODIUM 1 GM/VIAL ONE (08:38)
[2022-06-23] MEDS ORDERED: Ringers Lactate 1,000 ML IV ONE (08:38)
[2022-06-23] MEDS ORDERED: ACETAMINOPHEN 500 MG TAB ONE (09:09)
[2022-06-23] MEDS ORDERED: CELECOXIB 100 MG CAPSULE ONE (09:09)
[2022-06-23] MEDS ORDERED: dexAMETHasone 10 MG/ML VIAL ONE (10:03)
[2022-06-23] MEDS ORDERED: MIDAZOLAM HCL 2 MG/2 ML INJ ONE (10:03)
[2022-06-23] MEDS ORDERED: FENTANYL CITR 100 MCG/2 ML ONE (10:03)
[2022-06-23] MEDS ORDERED: ROCURONIUM 50 MG/5 ML VIAL IV ONE (10:03)
[2022-06-23] MEDS ORDERED: KETOROLAC 30 MG/ML INJ ONE (10:03)
[2022-06-23] MEDS ORDERED: ONDANSETRON 4 MG/2 ML VIAL ONE (10:03)
[2022-06-23] MEDS ORDERED: propofoL 200 MG/20 ML VIAL IV ONE (10:03)
[2022-06-23] MEDS ORDERED: LIDOCAINE 2% MPF 5 ML VIAL ONE (10:04)
--- NOTE | 2022-06-23 11:24 | P.BOP ---
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
[2022-06-23] MEDS: HYDROMORPHONE HCL 1 MG/ML INJ ONE ×2 (11:29→11:35)
[2022-06-23 11:41] VITALS: O2SAT 100
[2022-06-23] MEDS ORDERED: HYDROMORPHONE HCL 1 MG/ML INJ ONE (11:44)
[2022-06-23 12:08] VITALS: BP 118/80; TEMP 96.9
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
--- NOTE | 2022-06-23 19:00 | DS ---
Date of Discharge: 06/23/2022 Diagnoses: Acute cholecystitis, symptomatic cholelithiasis, right upper quadrant abdominal pain. Procedure: Laparoscopic cholecystectomy. Disposition: Home. Activity: As tolerated. No heavy lifting. Plan: Follow up in my office in 1 week. Call for appointment on [phone]. Keep area dry for 48 albert rs, then may shower. Keep Steri-Strips intact. BEVERLY/MOUNA Voice ID: [id number] Report ID: [id number]
== END 2022-06-23 12:30 | disposition home or self-care (01) ==
LOC: OR 08:19
PROVIDERS: ATTEND Surgery
PROC: 0FT44ZZ Resection of Gallbladder, Percutaneous Endoscopic Approach (ICD-10-PCS; principal; 2022-06-23 09:45)
DX: K80.12 Calculus of gallbladder with acute and chronic cholecystitis without obstruction (principal); R10.11 Right upper quadrant pain
CPT/HCPCS: 85025; 80048; 36415; 82150; 80076; 88304; 83690; 47562; J2704; J2001; J2250; J3010; J1100; J1170 ×2; J7120; J0694; J2405